=== PATIENT | male | born 1995 | race Caucasian/White ===

== ENCOUNTER 2022-11-01 14:35 | Emergency (ER) | payer SELFPAY ==
[~2022-11-01] VITALS: Ht 162.6 cm; Wt 55.0 kg
[2022-11-01 14:45] VITALS: BP 124/80; PULSE 98; RESP 16; TEMP 97.7; O2SAT 98
[2022-11-01] MEDS ORDERED: SODIUM CHLORIDE 0.9% 1,000 ML IV ONE (15:15)
[2022-11-01 16:05] LABS: *AMPHETAMINES SCREEN URINE NEGATIVE (NEGATIVE); *BARBITURATES SCREEN URINE NEGATIVE (NEGATIVE); *BENZODIAZEPINES SCREEN URINE NEGATIVE (NEGATIVE); *COCAINE SCREEN URINE NEGATIVE (NEGATIVE); CANNABINOID URINE SCREEN NEGATIVE (NEGATIVE); ECSTASY MDMA SCREEN URINE NEGATIVE (NEGATIVE); METHADONE URINE SCREEN NEGATIVE (NEGATIVE); OPIATES URINE SCREEN NEGATIVE (NEGATIVE); PHENCYCLIDINE URINE SCREEN NEGATIVE (NEGATIVE)
== END 2022-11-01 15:50 | disposition left against medical advice (07) ==
LOC: ER 14:35
DX: F10.129 Alcohol abuse with intoxication, unspecified (principal); Y90.9 Presence of alcohol in blood, level not specified
CPT/HCPCS: 99283; 80305; J7030